=== PATIENT | female | born 1940 ===

== ENCOUNTER 2019-07-15 08:27 | Emergency (ER) | payer OTHER ==
[~2019-07-15] VITALS: Ht 167.6 cm; Wt 93.3 kg
[2019-07-15 08:28] VITALS: BP 0/0
[2019-07-15] MEDS ORDERED: NOREPINEPHRINE 4 MG/D5%-WATER 250 ML IV PRN (08:34)
[2019-07-15] MEDS ORDERED: AMIODARONE HCL 150 MG in DEXTROSE 5%-WATER 97 ML IV ONE (09:00)
[2019-07-15] MEDS ORDERED: AMIODARONE HCL 360 MG in DEXTROSE 5%-WATER 242.8 ML IV ONE (09:00)
[2019-07-15 09:12] LABS: HEMATOCRIT 44.4 % (36-46); HEMOGLOBIN 14.3 g/dL (12.0-16.0); MEAN CORPUSCULAR HEMOGLOBIN 29.9 pg (26.0-34.0); MEAN CORPUSCULAR HGB CONC 32.2 G/dL (31.0-37.0); MEAN CORPUSCULAR VOLUME 93 fL (80-100); PLATELET COUNT (AUTO) 175 K/uL (150-450); RED BLOOD CELL COUNT(AUTO) 4.79 MIL/uL (4.00-5.20); RED CELL DISTRIBUTION WIDTH 13.9 % (11.5-14.5)
[2019-07-15 09:21] LABS: CALCIUM, TOTAL 8.9 mg/dL (8.8-10.5); CREATININE 1.13 mg/dL (0.60-1.30); POTASSIUM 3.5 mmol/L (3.5-5.1)
[2019-07-15 09:23] LABS: INR 1.1 (0.9-1.1)
[2019-07-15 09:26] LABS: BAND NEUTROPHILS % (MANUAL) 0 % (0-5)
[2019-07-15 09:27] LABS: ALBUMIN 3.9 g/dL (3.4-5.0); BILIRUBIN,TOTAL 0.2 mg/dL (0.1-1.0)
[2019-07-15] MEDS ORDERED: PHENYLEPHRINE HCL IN 0.9% NACL 400 MCG/10 ML SYRINGE IVP ONE (09:27)
[2019-07-15 09:30] LABS: BASOPHILS % (MANUAL) 2 % (0-2); EOSINOPHILS % (MANUAL) 1 % (1-6); LYMPHOCYTES % (MANUAL) 52 % (22-44); MONOCYTES % (MANUAL) 10 % (2-9); REACTIVE LYMPHOCYTES 19 % (0-0); SEGMENTED NEUTROPHILS % 16 % (40-70)
[2019-07-15] MEDS ORDERED: PHENYLEPHRINE 200 MG/D5%-WATER 250 ML IV PRN (09:30)
[2019-07-15] MEDS ORDERED: LIDOCAINE/PF 1% 30 ML VIAL ONE (09:34)
[2019-07-15] MEDS ORDERED: VERAPAMIL HCL 2.5 MG/ML 2 ML VIAL ONE (09:34)
[2019-07-15] MEDS ORDERED: NITROGLYCERIN 50 MG/D5% WATER 0 ML ONE (09:34)
[2019-07-15] MEDS ORDERED: HEPARIN SODIUM,PORCINE 1,000 UNITS/ML 10 ML VIAL ONE (09:34)
[2019-07-15] MEDS ORDERED: SODIUM BICARBONATE 50 MEQ/50 ML VIAL ONE (09:34)
[2019-07-15] MEDS ORDERED: IOHEXOL 300 MG/ML 150 ML VIAL ONE (09:35)
[2019-07-15] MEDS ORDERED: HEPARIN SODIUM 1000 UNITS/NS 500 ML ONE (09:35)
[2019-07-15] MEDS ORDERED: EPINEPHrine 1:10,000 [1 MG/10 ML] SYRINGE ONE (09:43)
[2019-07-15] MEDS ORDERED: EPINEPHRINE IV PRN (09:45)
[2019-07-15] MEDS ORDERED: VANCOMYCIN HCL 1.5 GM in DEXTROSE 5%-WATER 250 ML IV ONE (09:45)
[2019-07-15] MEDS ORDERED: EPINEPHrine 2 MG in DEXTROSE 5%-WATER 248 ML IV PRN (09:45)
[2019-07-15] MEDS ORDERED: EPINEPHrine 2 MG, CALCIUM CHLORIDE 1,000 MG in DEXTROSE 5%-WATER 238 ML IV PRN (09:45)
[2019-07-15] MEDS ORDERED: DEXTROSE 5% IV PRN (09:45)
[2019-07-15] MEDS ORDERED: WATER IV PRN (09:45)
[2019-07-15] MEDS ORDERED: PIPERACILLIN/TAZO 3.375 GM/D5W 50 ML IV SCH (10:00)
[2019-07-15 10:01] LABS: ABG BASE EXCESS 1.8 mmol/L (-2.0-3.0); ABG CARBOXYHEMOGLOBIN 0.1 % (0.0-1.5); ABG HCO3 24.7 mmol/L (22.0-26.0); ABG METHEMOGLOBIN 0.1 % (0.0-1.5); ABG OXYGEN CONTENT 12.5 mL/dL (15.0-23.0); ABG OXYHEMOGLOBIN 82.8 % (94.0-100.0); ABG PH 7.228 (7.35-7.450); ABG TOTAL HEMOGLOBIN 10.7 G/dL (12.0-18.0); SOURCE, BLOOD GAS ARTERIAL; TEMPERATURE, FAHRENHEIT, BG 98.6 FAHREN (96.0-98.6)
[2019-07-15 13:41] LABS: ABG PCO2 72 mmHg (35-45)
[2019-07-15 13:42] LABS: O2 DEVICE,BLOOD GAS VENTILATOR (ROOM AIR); SITE, BLOOD GAS LFT RADIAL; VT, ABG 450 ml
[2019-07-15 13:43] LABS: PEEP,BG 10 cm H2O
[2019-07-15] MEDS ORDERED: AMIODARONE HCL 540 MG in DEXTROSE 5%-WATER 239.2 ML IV ONE (15:00)
[2019-07-16] MEDS ORDERED: AMIODARONE HCL 750 MG in DEXTROSE 5%-WATER 485 ML IV SCH (08:47)
[2019-07-19] MEDS ORDERED: LIDOCAINE/PF 2% 5 ML SYRINGE IVP ONE (14:57)
[2019-07-19] MEDS ORDERED: ETOMIDATE 2 MG/ML 10 ML VIAL ONE (14:57)
== END 2019-07-15 14:00 | disposition expired ==
LOC: EMS 08:31
DX: I46.9 Cardiac arrest, cause unspecified (principal); F17.200 Nicotine dependence, unspecified, uncomplicated; Z86.73 Personal history of transient ischemic attack (TIA), and cerebral infarction without residual deficits
CPT/HCPCS: 31500; 36415; 36556; 36600; 71045; 80053; 82805; 83605; 84484; 85025; 85610; 85730; 86850; 86900; 86901; 87635; 92950 ×2; 93005; 94640; 99291; 99292; J0171 ×2; J0282; J1644; J2370; J3370; J3490 ×2; J7060 ×2; Q9967; 51702; 94002